=== PATIENT | male | born 1995 | race Caucasian/White ===

== ENCOUNTER 2018-01-30 19:10 | Emergency (ER) | payer MEDICAID, OTHER ==
[2018-01-30] MEDS ORDERED: Dexamethasone 10 MG/ML VIAL ONE (19:31)
== END 2018-01-30 20:00 | disposition home or self-care (01) ==
LOC: SCSER 19:10
DX: J02.9 Acute pharyngitis, unspecified (principal)
CPT/HCPCS: 87081; 87430; 96372; J1100

== ENCOUNTER 2025-04-27 15:58 | Emergency (ER) | payer OTHER, SELFPAY ==
[2025-04-27 16:21] LABS: #Basophils 0.04 10x3/uL (0.0-0.2); #Eosinophils 0.36 10x3/uL (0.0-0.7); #Monocytes 0.70 10x3/uL (0.11-0.59); #Neutrophils 3.92 10x3/uL (1.40-6.50); %Basophils 0.5 % (0.0-1.0); %Eosinophils 4.7 % (0.0-10.0); %Lymphocytes 33.6 % (21.0-51.0); %Monocytes 9.2 % (0.0-10.0); %Neutrophils 51.9 % (42.0-75.0); Hematocrit 42.8 % (42.0-52.0); Hemoglobin 14.2 g/dL (14.0-18.0); Mean Corpuscular Hemoglobin 28.4 pg (27.0-31.0); Mean Corpuscular Volume 85.6 fL (78.0-98.0); Platelet Count 197 10x3/uL (130-400); Red Blood Cell (RBC) Count 5.00 mill/uL (4.70-6.10); White Blood Cell (WBC) Count 7.58 10x3/uL (4.8-10.8)
[2025-04-27 16:39] LABS: ALT (SGPT) 31 U/L (Less than 45); AST (SGOT) 34 U/L (11-34); Albumin 4.9 g/dL (3.1-4.5); Alkaline Phosphatase 66 U/L (40-110); Anion Gap 10 mmol/L (10-20); BUN (Urea Nitrogen) 14 mg/dL (8.9-20.6); Bilirubin, Total 0.3 mg/dL (0.3-1.2); Calc. Creatinine Clearance 0 mL/min (70-130); Calcium 9.8 mg/dL (7.8-10.44); Carbon Dioxide 31 mmol/L (22-29); Chloride 105 mmol/L (98-107); Globulin 2.4 g/dL (2.4-3.5); Glucose 73 mg/dL (70-105); Potassium 4.0 mmol/L (3.5-5.1); Sodium 142 mmol/L (136-145)
== END 2025-04-27 16:49 | disposition home or self-care (01) ==
LOC: ERS 15:58
DX: T59.6X1A Toxic effect of hydrogen sulfide, accidental (unintentional), initial encounter (principal)
CPT/HCPCS: 80053; 83605; 85025; 93005; 94760; 99284